=== PATIENT | female | born 1995 | race Caucasian/White ===

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

== ENCOUNTER 2017-01-16 11:50 | Emergency (ER) | payer OTHER ==
--- NOTE | ~2017-01-16 | CR2 ---
[facility] A Service of [facility] RADIOLOGY TEXT RESULTS PATIENT: LENORE RODRIGUEZ LOCATION: SED : [birth year] UNIT #: [id number] AGE: [address]: Sanket Talley MD SEX: F ORDER DR: [id number] [address] [address] [id number] E MR#: [id number] Acc #: [id number] NAME: LENORE RODRIGUEZ : 1995 SEX: F STUDY DATE/TIME: UNIT: SED ROOM: STUDY DESCRIPTION: CR Abdomen Acute Series Attending Physician: Sanket Talley M.D. Referring Physician: Sanket Talley M.D. Ordering Physician: Sanket Talley M.D. Primary Care Physician: [facility] IMAGING REPORT This report is preliminary unless electronic signature is present. EXAM Acute abdomen series 01/16/2017 1145 hours HISTORY 21-year-old woman complaining of abdominal pain since 05:00 a.m. today described as left-sided pain which is severe, history of constipation. COMPARISON Chest film 11/23/2016 FINDINGS Upright view of the chest demonstrates normal cardiac, mediastinal and hilar contours. The lungs are clear and there are no effusions. Supine and upright views of the abdomen demonstrate a nonspecific bowel gas pattern without evidence of obstruction or free air. No suspicious calcifications. There is moderate stool in the right colon only. IMPRESSION 1. Normal upright view of the chest. 2. No bowel obstruction or free air. There is moderate stool in the right colon only. No suspicious calcifications. Dictated by... Bertha Martinez M.D. THIS IS AN ELECTRONICALLY VERIFIED REPORT Bertha Martinez M.D. at 01/16/2017 2:30 PM Victor Manuel TD: 01/16/2017 13:46 JOB #: [id number] [facility] A Service of [facility] RADIOLOGY TEXT RESULTS PATIENT: LENORE RODRIGUEZ LOCATION: SED : [birth year] UNIT #: [id number] AGE: [address]: Sanket Talley MD SEX: F ORDER DR: MEDICAL IMAGING REPORT Page 1 of 1
[2017-01-16 11:31] LABS: URINE SOURCE CLEAN CATCH
[2017-01-16 11:34] LABS: URINE APPEARANCE CLEAR; URINE BILIRUBIN NEG (NEG); URINE BLOOD NEG (NEG); URINE COLOR YELLOW; URINE GLUCOSE NEG (NORM); URINE KETONE NEG (NEG); URINE LEUKOCYTE ESTERASE NEG (NEG); URINE NITRATE NEG (NEG); URINE PH 8.5 (5-8); URINE PROTEIN TRACE (NEG); URINE SPECIFIC GRAVITY 1.015 (1.003-1.035)
[2017-01-16 11:35] LABS: MICRO INDICATED? YES
[2017-01-16 11:43] LABS: CULTURE INDICATED? YES; URINE AMORPHOUS SEDIMENT AMORP PHOSPHATES; URINE BACTERIA 1+ (NEG); URINE RBC 0-2 /[HPF] (0-2); URINE SQUAMOUS EPITHELIAL CELL MODERATE /[HPF]; URINE WBC 0-2 /[HPF] (0-5)
[2017-01-16 11:44] LABS: URINE MUCUS PRESENT
== END 2017-01-16 12:55 | disposition home or self-care (01) ==
LOC: SED 11:50
PROVIDERS: Emergency Medicine
DX: K59.00 Constipation, unspecified (principal); J45.909 Unspecified asthma, uncomplicated; F17.210 Nicotine dependence, cigarettes, uncomplicated; Z79.899 Other long term (current) drug therapy
CPT/HCPCS: 74022; 81003; 84703; 87086; 99284